=== PATIENT | male | born 1975 | race Caucasian/White ===

== ENCOUNTER 2023-05-15 01:34 | Emergency (ER) | payer BC, SELFPAY ==
[2023-05-15 03:31] LABS: Bacteria/HPF None Seen HPF (None Seen); Bilirubin Negative (Negative); Blood, Urine 3+ (Negative); CAUTI Indications for Culture Dysuria,urgency,freq; Clarity Clear (Clear); Glucose, Urine (Dipstick) Normal (Negative); Ketone, Urine Negative (Negative); Leukocyte Negative Leu/uL (Negative); Nitrite Negative (Negative); Protein, Urine (Dipstick) 10 mg/dL (Neg-Trace); RBC/HPF Greater than 50 HPF (0-3); Specific Gravity, Urine 1.021 (1.002-1.036); Squamous Epithelial None Seen HPF (0-3); Urobilinogen Normal mg/dL (Less than 2); pH, Urine 5.5 (5.0-9.0)
[2023-05-15 03:32] LABS: Urine Culture Reflex No No
== END 2023-05-15 03:44 | disposition home or self-care (01) ==
LOC: ERS 01:34
DX: N20.0 Calculus of kidney (principal)
CPT/HCPCS: 81001; 99284